=== PATIENT | male | born 1945 | race Caucasian/White ===

== ENCOUNTER 2016-09-12 16:21 | Observation (INO) ==
[~2016-09-12 16:21] MED LIST: SALINE LOCK IV FLUID XX ONE
--- NOTE | 2016-09-12 17:01 | HISTORY AND PHYSICAL ---
CHIEF COMPLAINT: Cannot see and feels numb in arms and legs. HISTORY OF PRESENT ILLNESS: This is one of numerous [facility] admissions for this 71-year- old white man with multiple medical illnesses and learning disability, who had visual loss on awakening Sunday 09/10. He went to [place] emergency room. He had a CT scan of his head which was unremarkable. He was sent to Dr. Jenkins, band tumbler, and no explanation was found for his visual loss. He presented to the office today with persistent visual loss. He could not read any of the letters on the eye chart and stated that he did not see me sitting 10 feet away. He has not driven since Friday when this occurred. Home health nurse called on 09/02/2016 wanting to change his Eliquis to aspirin due to cost. This was done. There is no previous history of stroke or TIA. He has had chest pain on numerous occasions, most of the time being related to costochondritis. His [id number] accompanied him to the office today and discussion was made with the patient and her. Decision was made to do MRI with an without contrast and carotid ultrasound tomorrow at [facility]. The [id number] called about an hour later stating that he was starting to have numbness in his arms and had only numbness in his feet when he was in the office. Decision was made to put him in the hospital at [facility]. He is admitted for further evaluation to rule out stroke in the occipital area. PAST MEDICAL HISTORY: No recent surgeries. PRESENT MEDICATIONS: Vowinckel 10/325 one t.i.d. for knee pain, omeprazole 20 mg 1 daily, Dilantin 100 mg 2 b.i.d., Klonopin 0.5 mg 1 at bedtime, baclofen 10 mg b.i.d., Zoloft 100 mg at bedtime, aspirin 325 mg 1 daily, Carafate 1 g b.i.d., Restoril 15 mg 1 at bedtime, trazodone 100 mg at bedtime, Actos 15 mg daily, metformin 500 mg b.i.d., Seroquel 50 mg at bedtime, and Geodon 80 mg once daily. ALLERGIES: None known. REVIEW OF SYSTEMS: Significant for seizures, but none recently. He has had numerous episodes of chest pain, but no significant abnormalities on GXT. He has been under hospice care off and on for a few years. SOCIAL HISTORY: No smoking or alcohol usage. Patient lives alone and has family nearby. PHYSICAL EXAMINATION: VITAL SIGNS: Temperature 98.4 degrees, heart rate 84, respirations 16, blood pressure 118/70. GENERAL: Patient is a well-developed, well-nourished, white man, unsteady in his gait and with visual loss bilaterally. HEENT: Pupils are equal, round, and reactive to light. Tympanic membranes without inflammation. Pharynx benign. NECK: Supple with no mass or lymphadenopathy. There is no carotid bruit. HEART: Regular in rate and rhythm with no murmur, rub, or gallop. LUNGS: Clear with no rales or rhonchi. ABDOMEN: Soft with no mass, tenderness, or organomegaly. EXTREMITIES: No cyanosis, clubbing, or edema. There is mild right knee pain with range of motion. RECTAL AND GENITALIA: Deferred. IMPRESSION: Acute visual loss and numbness of extremities, rule out central etiology. PLAN: Admit for further evaluation and treatment. MRI with and without contrast and carotid ultrasound will be done tomorrow. cc: Boston Middleton MD
[2016-09-12] MEDS ORDERED: TYLENOL PO PRN (17:14)
[2016-09-12] MEDS: NORCO-10 PO SCH (18:33)
[2016-09-12] MEDS: GLUCOPHAGE PO SCH (18:33)
[2016-09-12] MEDS ORDERED: KLONOPIN PO SCH (21:00)
[2016-09-12] MEDS: CARAFATE PO SCH (21:41)
[2016-09-12] MEDS: DILANTIN PO SCH (21:42)
[2016-09-12] MEDS: SEROQUEL PO SCH (21:42)
[2016-09-12] MEDS: ELIQUIS PO SCH (21:42)
[2016-09-12] MEDS: ZOCOR PO SCH (21:42)
[2016-09-13] MEDS: PROTONIX PO SCH (06:40)
--- NOTE | 2016-09-13 08:37 | PROGRESS NOTE ---
DATE: 09/13/2016 VITAL SIGNS: Stable with temperature 98 degrees, heart rate 71, respirations 18, blood pressure 152/68, O2 saturation 99% on room air. IMPRESSION: The patient has persistent blindness bilaterally. Chest is clear. PLAN: MRI with and without contrast, and carotid ultrasound today. cc: Boston Middleton MD
--- NOTE | 2016-09-13 09:45 | Diag Imaging Result Doc PS360 ---
EXAM: MRI BRAIN W W/O CONTRAST HISTORY: possible occipital stroke TECHNIQUE: MRI of the brain with and without gadolinium. T1 sagittal, T1 axial, T2 axial (propeller), diffusion-weighted axial, and echo coronal, FLAIR axial, post gadolinium T1 axial with coronal reconstruction. COMMENT: There is considerable motion artifact. There are no previous MRI studies. There is a CT of the head dated 09/10/2016. No evidence of bleed mass effect or abnormal extra-axial fluid collection is present. The pituitary is not enlarged. There is no evidence for restricted diffusion. Numerous punctate areas of increased T2-weighted signal intensity are present on the FLAIR and T2-weighted images in the subcortical and periventricular white matter particularly in the parietal and frontal lobes. There is no evidence of abnormal gadolinium enhancement, however the post contrast studies are even more affected by patient motion and the other sequences. IMPRESSION: Chronic microvascular white matter change. No evidence of acute disease. Electronically signed by Antonio Pearce 09/13/2016 9:43 AM
[2016-09-13] MEDS: CARAFATE PO SCH ×2 (09:53→20:42)
[2016-09-13] MEDS: NORCO-10 PO SCH ×3 (09:53→20:19)
[2016-09-13] MEDS: ZOLOFT PO SCH (09:53)
[2016-09-13] MEDS: KLONOPIN PO SCH ×3 (09:54→20:20)
[2016-09-13] MEDS: ELIQUIS PO SCH ×2 (09:54→20:42)
[2016-09-13] MEDS: ACTOS PO SCH (09:54)
[2016-09-13] MEDS: GLUCOPHAGE PO SCH ×2 (09:54→17:05)
[2016-09-13] MEDS: COLACE PO SCH (09:54)
[2016-09-13] MEDS: VASOTEC PO SCH (09:54)
[2016-09-13] MEDS: GEODON PO SCH (09:54)
[2016-09-13] MEDS: DILANTIN PO SCH ×2 (09:54→20:41)
--- NOTE | 2016-09-13 17:02 | PROGRESS NOTE ---
DATE: 09/13/2016 Temperature 97.5 degrees, heart rate 69, respirations 14, blood pressure 103/70, O2 saturation 100% on room air. MRI with and without contrast showed no acute lesions, only microvascular changes. Carotid ultrasound result is still pending. Etiology for his visual changes uncertain. He still states that he can only see occasional light, but cannot distinguish people. When I walked in the room he looked in my direction and followed me to his bed. This morning when I was in the elevator and the door opened he was getting off on the 1st floor and he looked in my direction. I asked if he could see, he said no. Discussion was made with the patient concerning disposition. He does not want to go to a prison. It is uncertain whether he has family who can take care of them at this time with his visual loss. He has seen a retina specialist who was unable to find an etiology for his visual loss. There was a cataract bilaterally, but not significant enough to explain the visual loss that he states. He can go home this weekend if family members are able to care for him. cc: Boston Middleton MD
[2016-09-13] MEDS: ZOCOR PO SCH (20:42)
[2016-09-13] MEDS: SEROQUEL PO SCH (20:42)
[2016-09-13] MEDS ORDERED: RESTORIL PO SCH (21:00)
[2016-09-14] MEDS: PROTONIX PO SCH (06:24)
[2016-09-14] MEDS: CARAFATE PO SCH ×2 (08:44→20:59)
[2016-09-14] MEDS: ZOLOFT PO SCH (08:44)
[2016-09-14] MEDS: ELIQUIS PO SCH ×2 (08:44→20:59)
[2016-09-14] MEDS: KLONOPIN PO SCH ×3 (08:45→21:00)
[2016-09-14] MEDS: ACTOS PO SCH (08:45)
[2016-09-14] MEDS: GLUCOPHAGE PO SCH ×2 (08:45→17:23)
[2016-09-14] MEDS: GEODON PO SCH (08:45)
[2016-09-14] MEDS: DILANTIN PO SCH ×2 (08:45→20:59)
[2016-09-14] MEDS: COLACE PO SCH (08:45)
[2016-09-14] MEDS: VASOTEC PO SCH (08:45)
[2016-09-14] MEDS: NORCO-10 PO SCH ×3 (08:46→21:00)
[2016-09-14] MEDS ORDERED: RESTORIL PO PRN (11:07)
--- NOTE | 2016-09-14 14:38 | PROGRESS NOTE ---
DATE: 09/14/2016 PRIMARY CARE PHYSICIAN: Dr. Boston Middleton. CHIEF COMPLAINT: The patient notes he is not sleeping well. Other than that, he denies any chest pain, palpitations. He states that he feels like his vision is getting a little bit better. He denies any GI or issues otherwise. PHYSICAL: Vital Signs: Temperature 98 degrees, pulse 79, respiratory rate 18, BP 142/68, saturation 98% on room air. General: The patient is awake, alert, lying in bed. He is currently in no distress. Speech is regular. Neck supple. CV: Regular rate. Chest clear. Abdomen soft, obese, nondistended. Extremities: Moves all extremities. Neurologic: No changes. Labs pending. ASSESSMENT: 1. Acute visual loss. MRI showed no acute stroke. Carotid ultrasound results still pending. The patient has been started on Eliquis. 2. Hypertension. 3. Diabetes. 4. Chronic seizure disorder. Continue Dilantin. 5. High cholesterol. PLAN: We will continue patient's home medications. We will restart his temazepam for sleep as needed. Further orders as needed. cc: MD Boston Holley MD
[2016-09-14] MEDS: SEROQUEL PO SCH (20:59)
[2016-09-14] MEDS: ZOCOR PO SCH (21:00)
[2016-09-15] MEDS: PROTONIX PO SCH (06:22)
[2016-09-15 07:04] LABS: HEMATOCRIT 39.5 % (42.0-52.0); HEMOGLOBIN 13.4 g/dL (14.0-18.0); MCH 29.6 PG (27-31); MCHC 33.9 g/dL (33-37); MCV 87.2 FL (81-99); MPV 9.1 FL (7.4-10.4); RBC 4.53 XMIL (4.7-6.1)
[2016-09-15 07:49] LABS: AGAP 14; ALBUMIN 3.7 g/dL (3.5-5.0); ALKALINE PHOSPHATASE 116 U/L (32-122); BUN 23 mg/dL (8-22); CALCIUM 8.8 mg/dL (8.8-10.2); CHLORIDE 100 mmol/L (98-107); COSMO 281; GOT 18 U/L (10-34); GPT 11 U/L (10-44); MAGNESIUM 2.2 mg/dL (1.5-2.7); POTASSIUM 4.4 mmol/L (3.5-5.1); SODIUM 139 mmol/L (136-145); TCO2 25 mmol/L (25-35); TOTAL BILIRUBIN 0.25 mg/dL (0.20-1.00); TOTAL PROTEIN 7.2 g/dL (6.3-8.3)
[2016-09-15] MEDS: GLUCOPHAGE PO SCH ×2 (08:58→17:22)
[2016-09-15] MEDS: DILANTIN PO SCH ×2 (08:58→20:26)
[2016-09-15] MEDS: ACTOS PO SCH (08:58)
[2016-09-15] MEDS: NORCO-10 PO SCH ×3 (08:58→17:21)
[2016-09-15] MEDS: ZOLOFT PO SCH (08:59)
[2016-09-15] MEDS: VASOTEC PO SCH (09:00)
[2016-09-15] MEDS: COLACE PO SCH (09:01)
[2016-09-15] MEDS: KLONOPIN PO SCH ×3 (09:01→17:22)
[2016-09-15] MEDS: ELIQUIS PO SCH ×2 (09:01→20:26)
[2016-09-15] MEDS: GEODON PO SCH (09:01)
[2016-09-15] MEDS: CARAFATE PO SCH ×2 (09:07→20:26)
[2016-09-15] MEDS: ZOCOR PO SCH (20:26)
[2016-09-15] MEDS: SEROQUEL PO SCH (20:26)
[2016-09-16] MEDS: PROTONIX PO SCH (06:19)
--- NOTE | 2016-09-16 08:32 | DISCHARGE SUMMARY ---
ADMISSION DATE: 09/12/2016 DISCHARGE DATE: 09/16/2016 FINAL DIAGNOSES: 1. Visual loss, uncertain etiology. 2. Seizure disorder. 3. Chronic knee and back pain. 4. Insomnia. DISCHARGE MEDICATION: Usual medication at home including Eliquis 5 mg b.i.d. BRIEF HOSPITAL COURSE: This is one of numerous [facility] admissions for this 71-year-old white man with sudden visual loss a few days before admission. He presented to the emergency room and CT scan of his head was done which revealed no acute change, only microvascular changes. He saw a retinal specialist as an outpatient who could determine no etiology for his degree of visual loss. When he came to the office he was unable to walk without assistance because of visual loss. He could not see the eye chart. He has not driven for a couple days. He was admitted for further evaluation and treatment. INITIAL LABORATORY: Hemoglobin 13.4, hematocrit 39.5. White blood count 5100, with normal differential. Chemistry sodium 139, potassium 4.4, BUN 23, creatinine 1.0, glucose 87, hemoglobin A1c 5.0. Liver functions normal. TSH normal at 1.6. HOSPITAL COURSE: Brain MRI with and without contrast revealed chronic microvascular white matter changes with no evidence of acute disease. Carotid ultrasound is still pending. Patient's vision this morning has improved, but is not back to normal. Discussion is made with the patient and his [id number]. He plans to move in with his niece, his brother's daughter in [place] to assist in his care. He is discharged home on the above medications and is to return to the office in 1 week for followup. cc: Boston Middleton MD
[2016-09-16] MEDS: VASOTEC PO SCH (08:44)
[2016-09-16] MEDS: GEODON PO SCH (08:46)
[2016-09-16] MEDS: ACTOS PO SCH (08:46)
[2016-09-16] MEDS: DILANTIN PO SCH (08:46)
[2016-09-16] MEDS: COLACE PO SCH (08:46)
[2016-09-16] MEDS: GLUCOPHAGE PO SCH (08:46)
[2016-09-16] MEDS: ZOLOFT PO SCH (08:46)
[2016-09-16] MEDS: CARAFATE PO SCH (08:46)
[2016-09-16] MEDS: ELIQUIS PO SCH (08:47)
[2016-09-16 08:50] VITALS: BP 138/95
[2016-09-16] MEDS: NORCO-10 PO SCH (08:59)
[2016-09-16] MEDS: KLONOPIN PO SCH (08:59)
--- NOTE | 2016-09-17 11:34 | Carotid Study ---
DATE: 09/13/2016 PROCEDURE: Bilateral duplex and color flow imaging of the carotid arteries performed using the Telecardia Vivid E9 ultrasound system with a 9L-D transducer. REFERRING PHYSICIAN: Boston Middleton MD. INTERPRETING PHYSICIAN: Tammy Pacheco MD. TECH: Yolanda Hernandez RVT. INDICATIONS: CVA/stroke, ICD-10 163.50. OBSERVED DATA RIGHT LEFT Brachial Blood Pressure Carotid Pulse Bruits: Carotid/Sub DIAGRAM OF ULTRASOUND IMAGING R L RIGHT INT EXT INT EXT LEFT Regan (cm/s) Regan (cm/s) Subclavian 70/0 Subclavian 76/0 CCA Proximal 80/9 CCA Proximal 80/12 CCA Distal 65/11 CCA Distal 39/7 Bulb 36/10 Bulb 32/7 ICA Proximal 39/8 ICA Proximal 31/8 ICA Mid 43/12 ICA Mid 41/14 ICA Distal 44/14 ICA Distal 43/15 ECA 63/8 ECA 59/4 Vertebral 54/16 Vertebral 42/13 ICA/CCA Ratio 0.55 ICA/CCA Ratio 0.54 % Stenosis 0-39 % Stenosis 0-39 PHYSICIAN INTERPRETATION: Mild atherosclerotic disease of the distal common and internal carotid arteries bilaterally without evidence of a hemodynamically significant lesion in either carotid system. cc: MD Boston Bradley MD
== END 2016-09-16 10:44 | disposition home or self-care (01) ==
LOC: DIRADM 16:21 → OPS 16:21 → 3N 16:21 → DIRADM 16:22 → UNDODISIN 09-16 10:44 → EDSTATUS 09-19 12:08
PROVIDERS: ADMIT Family Medicine; ATTEND Family Medicine